=== PATIENT | male | born 2000 | race African-American/Black ===

== ENCOUNTER 2023-06-14 00:16 | Emergency (ER) | payer OTHER ==
[2023-06-14] MEDS ORDERED: methylPREDNISolone Sodium Succinate 125 MG/2 ML SDV IM ONE (00:28)
[2023-06-14] MEDS ORDERED: Albuterol/Ipratropium 3.0-0.5 MG/3 ML Neb Soln NEB ONE (00:28)
== END 2023-06-14 00:55 | disposition home or self-care (01) ==
LOC: FB.ED 00:16
DX: J45.901 Unspecified asthma with (acute) exacerbation (principal); Z79.899 Other long term (current) drug therapy
CPT/HCPCS: 94640; 96372; 99284; J2930; J7620